=== PATIENT | female | born 1990 | race Caucasian/White ===

== ENCOUNTER 2019-01-09 12:56 | Emergency (ER) | payer MEDICAID ==
[~2019-01-09] VITALS: Ht 170.2 cm; Wt 131.5 kg
[2019-01-09 13:10] VITALS: Ht 170.2 cm; Wt 131.5 kg
[2019-01-09 14:09] LABS: BASOPHIL % 0.6 % (0-2); PLATELET COUNT 352 x10^3mcL (130-400); RED CELL DISTRIBUTION WIDTH 14.1 % (11.5-14.5)
[2019-01-09 14:14] LABS: microscopic required? YES; urine erythrocyte 3+ (NEGATIVE)
[2019-01-09 15:01] LABS: FREE T4 0.96 ng/dL (0.76-1.46)
[2019-01-09 15:03] LABS: T3 TOTAL 2.32 ng/mL
[2019-01-09 15:11] LABS: FREE THYROXINE INDEX 3.8 ug/dL (1.4-4.5); T4(THYROXINE) 13.9 ug/dL (4.7-13.3)
[2019-01-09 16:12] VITALS: BP 130/75
== END 2019-01-09 16:12 | disposition home or self-care (01) ==
LOC: ED 12:56 → EDBD 12:56 → ED 16:12
PROVIDERS: Specialist
DX: N93.8 Other specified abnormal uterine and vaginal bleeding (principal); E78.00 Pure hypercholesterolemia, unspecified; E78.5 Hyperlipidemia, unspecified
CPT/HCPCS: 36415; 84439

== ENCOUNTER 2019-05-29 10:25 | Emergency (ER) | payer SELFPAY ==
[~2019-05-29] VITALS: Ht 170.2 cm; Wt 131.5 kg
[2019-05-29 10:37] VITALS: Ht 170.2 cm; Wt 131.5 kg
[2019-05-29 11:37] VITALS: BP 144/96
== END 2019-05-29 11:37 | disposition home or self-care (01) ==
LOC: ED 10:25
DX: E28.2 Polycystic ovarian syndrome (principal); R05 Cough; Z88.0 Allergy status to penicillin